=== PATIENT | female | born 1960 | race Caucasian/White ===

== ENCOUNTER 2017-03-16 04:55 | Inpatient (IN) | payer OTHER, SELFPAY ==
[2017-03-16] MEDS ORDERED: Lorazepam 2 MG/ML VIAL ONE (05:11)
[2017-03-16 05:47] LABS: PTT 24.5 SEC (22.9-36.1)
[2017-03-16 05:48] LABS: Prothrombin Time 15.8 SEC (12.0-14.7)
[2017-03-16 06:04] LABS: Band 25 % (5-11); Hematocrit 32.2 % (36.0-47.0); Mean Platelet Volume 6.8 fL (7.4-10.4); Neutrophil 65 % (42-75); Red Blood Cell (RBC) Count 3.88 mill/uL (4.20-5.40)
[2017-03-16 06:10] LABS: Troponin I 0.025 ng/mL (< 0.028)
[2017-03-16 06:12] LABS: ALT (SGPT) 15 U/L (8-55); AST (SGOT) 54 U/L (5-34); Alkaline Phosphatase 87 U/L (40-150); Anion Gap 17 mmol/L (10-20); BUN (Urea Nitrogen) 28 mg/dL (9.8-20.1); Bilirubin, Total 0.6 mg/dL (0.2-1.2); CK (CPK) 2224 U/L (29-168); Calc. Creatinine Clearance 0 mL/min (70-130); Calcium 8.5 mg/dL (7.8-10.44); Carbon Dioxide 17 mmol/L (22-29); Chloride 102 mmol/L (98-107); Estimated GFR-MDRD 32; Globulin 3.1 g/dL (2.4-3.5); Lipase Less than 4 U/L (8-78); Protein, Total 6.1 g/dL (6.0-8.3)
[2017-03-16] MEDS ORDERED: traMADol HCl 50 MG TAB ONE (06:56)
[2017-03-16] MEDS ORDERED: Aspirin 325 MG TAB ONE (06:56)
[2017-03-16 08:19] LABS: Magnesium 1.7 mg/dL (1.6-2.6)
[2017-03-16 08:23] LABS: Phosphorus 1.9 mg/dL (2.3-4.7)
[2017-03-16] MEDS ORDERED: K-Phos Neutral 250 MG TAB PO SCH ×2 (08:45→17:00)
[2017-03-16 08:51] LABS: Troponin I 0.037 ng/mL (< 0.028)
--- NOTE | 2017-03-16 09:00 | RAD ---
PORTABLE UPRIGHT FRONTAL CHEST RADIOGRAPH: Date: 03-16-17 Comparison: 04-27-16 History: Right upper extremity weakness, pain, altered mental status. FINDINGS: There is prominent of the cardiac silhouette and elevation of the right hemidiaphragm, stable. There is mild increased linear density in the medial left lung base with no pneumothorax, pleural fluid, fo carlitos consolidation or alveolar edema. IMPRESSION: No focal consolidation or alveolar edema. POS: [facility]
[2017-03-16] MEDS ORDERED: Meropenem 1 GM in Sodium Chloride 0.9% 100 ML IVPB SCH (09:15)
[2017-03-16] MEDS ORDERED: Vancomycin HCl 1 GM in Premix Bag 1 BAG IVPB SCH (09:15)
[2017-03-16 09:22] LABS: Oxyhemoglobin 92.7 % (94.0-97.0); Sodium 133 mmol/L (135-148)
[2017-03-16 09:23] LABS: Mode NC; Modified Allen's Test NOT DONE; Vent NO
[2017-03-16 09:32] LABS: Hemoglobin A1c 9.5 % (4.0-6.0)
[2017-03-16] MEDS ORDERED: Sodium Chloride 0.9% 1,000 ML IV SCH (09:33)
[2017-03-16] MEDS ORDERED: Ondansetron ODT 4 MG TAB SL PRN (09:33)
[2017-03-16] MEDS ORDERED: Ondansetron HCl/PF 4 MG/2 ML Vial IVP PRN ×2 (09:33→12:24)
--- NOTE | 2017-03-16 09:59 | CT ---
PRELIMINARY REPORT/[facility]/EMERGENCY AFTER HOURS PROCEDURE: EXAM: CT Head Without Intravenous Contrast EXAM DATE/TIME: Exam ordered 03/16/2017 5:43 AM CLINICAL HISTORY: 56 years old, female; Signs and symptoms; Altered mental status/memory loss and weakness, extremity; Right; Confusion or disorientation; Patient HX: Er 6; AMS; Pt with rue weakness since yesterday eveni ng. Pain in shoulder with sudden onset. No inciting trauma or prior history. Pt reports loss of sensa tion in right hand. Associated generalized headache, lle weakness, cp, rlq abdominal tenderness. HX o f dvt in lle. TECHNIQUE: Axial computed tomography images of the head/brain without intravenous contrast. COMPARISON: No relevant prior studies available. FINDINGS: Brain: Normal. No hemorrhage. No significant white matter disease. No edema. Ventricles: Normal. No ventriculomegaly. Bones/joints: Normal. No acute fracture. Soft tissues: Normal. Lymph nodes: There are partially visualized nodular densities in the LEFT posterior neck possibly representing inflamed lymph nodes. Sinuses: Unremarkable as visualized. No acute sinusitis. Mastoid air cells: Unremarkable as visualized. No mastoid effusion. IMPRESSION: 1. No acute intracranial hemorrhage. 2. There are partially visualized nodular densities in the LEFT posterior neck possibly representing inflamed lymph nodes. Thank you for allowing us to participate in the care of your patient. Dictated and Authenticated by: Baudilio Desir MD 03/16/2017 6:09 AM Central Time ([place] & [place]) FINAL REPORT HEAD CT WITHOUT CONTRAST: DATE: 03/16/17. COMPARISON: 04/27/16. HISTORY: Right upper extremity weakness, pain, altered mental status. FINDINGS: I agree with the preliminary [facility] report. Imaged paranasal sinuses and mastoid air cells appear well aerated. There is no displaced calvarial fracture. There is no intracranial hemorrhage, midline shift, or mass effect. There are areas of pe riventricular hypodensity posteriorly suggesting stable small-vessel disease. Partially visualized nodular soft tissue densities are seen in the left posterior neck, possibly on t he basis of prominent lymph nodes. IMPRESSION: Question mildly prominent lymph nodes in the posterior left occipital region. This could be better e valuated with followup neck CT. No intracranial hemorrhage. POS: [facility]
[2017-03-16] MEDS ORDERED: Vancomycin HCl 1.5 GM in Sodium Chloride 0.9% 250 ML 300 ML IVPB SCH (10:00)
--- NOTE | 2017-03-16 10:11 | CT ---
HEAD CT WITHOUT CONTRAST: DATE: 03/16/17. TIME: 9:20 a.m. COMPARISON: 03/16/17, 5:43 a.m. HISTORY: Altered mental status. TECHNIQUE: Serial axial CT imaging is obtained at 5 mm intervals from vertex through the skull base without cont rast. FINDINGS: The imaged paranasal sinuses and mastoid air cells are well aerated. There is no displaced calvarial fracture. There is no intracranial hemorrhage, midline shift, or mass effect. There has been interval development of significant subcutaneous gas posterior to the occipital bone a nd along the posterior aspect of the skull base. IMPRESSION: 1. No intracranial hemorrhage. 2. Interval development of significant subcutaneous gas inferiorly/posteriorly, for which further as sessment of the neck and chest is advised. These findings were discussed with Dr. Foster at 9:30 a.m. 03/16/17. CODE CR POS: [facility]
--- NOTE | 2017-03-16 10:58 | CT ---
NONCONTRAST CT EXAMINATION OF THE CHEST NONCONTRAST CT EXAMINATION OF THE ABDOMEN AND PELVIS: FINDINGS: There is some very extensive abnormal gas collection involving the right axilla with extensive intram uscular extension in the right shoulder girdle as well as extension into the right posterior paraspin us musculature as well as extension into the right neck. There was no gas present on a prior chest x- ray of 5:32 a.m. 03-16-17. Given the lack of some type of very extensive intervention in the right ax illa, this is of concern for a very extensive, very rapidly progressive or aggressive necrotizing fas ciitis process, presumably originating somewhere in the right axillary region. There is no evidence o f mediastinal mass or adenopathy. No pneumothorax or pneumomediastinum. No significant pleural effusi on. Status post cholecystectomy without ductal dilation. Liver, pancreas, spleen, adrenal glands are unre markable. No renal calculus or acute obstruction. Right anterior inguinal hernia containing fat an d small bowel without evidence for obstruction. Right sided iliac vascular stent. IMPRESSION: Very extensive soft tissue gas noted within the right axilla and extending into the intramuscular reg ion of the right shoulder girdle and right paraspinus musculature as well as the right trapezius musc le and air extending from the right axilla up into the right neck. This is gas was not present on the prior chest x-ray of 03-16-17 at 5:27 a.m. and given the lack of a pneumothorax or pneumomediastinum in the chest, this is most consistent with that of a very extensive necrotizing fasciitis, very aggr essive and very rapidly developing since the chest x-ray done earlier this morning. Findings were discussed with Dr. Andino at 10:00 a.m. He indicated the patient was moved into the ICU. Code CR. POS: [facility]
[2017-03-16] MEDS ORDERED: Micafungin 100 MG in Sodium Chloride 0.9% 100 ML IVPB SCH (11:00)
[2017-03-16] MEDS ORDERED: FLU VACC QS2017-18 36 mo. & older 0.5 ML SYRINGE IM ONE (11:15)
--- NOTE | 2017-03-16 11:15 | CT ---
NONCONTRAST SOFT TISSUE NECK CT: History: Subcutaneous emphysema noted on noncontrast head CT. Altered mental status. Change in patien t condition. Comparison: None. Technique: Noncontrast soft tissue neck CT is performed in the axial plane. Reformatted images are augustine bmitted for interpretation. FINDINGS: There is extensive subcutaneous emphysema tracking along the posterior and left and to a lesser exten t, right neck. There is a severe amount of subcutaneous emphysema along the right chest and axillary region. There is subcutaneous air tracking along the central spinal canal. Limited evaluation of the soft tissue neck structures due to lack of IV contrast. Grossly, no soft ti ssue neck abnormality. Heterogenous thyroid gland is noted. Cavernous carotid atherosclerosis is identified. Aerodigestive tract appears to be patent. Upper mediastinum and lung apices do not show any evidence of air in the mediastinum or in the pleura l space. Visualized vascular structures appear to be intact. IMPRESSION: Extensive subcutaneous emphysema of uncertain etiology. Refer to separate chest, abdomen, and pelvic CT for further detail. POS: [facility]
[2017-03-16 11:20] LABS: Oxyhemoglobin 90.5 % (94.0-97.0); Sodium 133 mmol/L (135-148)
[2017-03-16 11:22] LABS: Mechanical Tidal Volume 500 ml; Mode SIMV; Modified Allen's Test POSITIVE; Pressure Support 10 cmH2O; Vent YES
[2017-03-16 11:24] LABS: ALT (SGPT) 34 U/L (8-55); AST (SGOT) 148 U/L (5-34); Alkaline Phosphatase 88 U/L (40-150); Bilirubin, Direct 0.4 mg/dL (0.1-0.3); Bilirubin, Total 0.7 mg/dL (0.2-1.2); Protein, Total 5.7 g/dL (6.0-8.3)
[2017-03-16 11:35] VITALS: BMI 38.7
--- NOTE | 2017-03-16 11:54 | RAD ---
CHEST ONE VIEW: HISTORY: Intubated. COMPARISON: 03/16/2017 FINDINGS: The cardiac silhouette is magnified by projection. The pulmonary vasculature is engorged and accentu ated by shallow inspiration. The mediastinum is midline. The tip of an endotracheal catheter overli es the thoracic inlet. A nasogastric tube descends to the stomach. Extensive right chest wall gas is as detailed on recent CT exam. 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 IMPRESSION: 1. Endotracheal catheter is in good radiographic position. 2. Extensive right chest wall gas. POS: [facility]
[2017-03-16] MEDS ORDERED: Albumin 5% 250 ML ONE (12:14)
[2017-03-16] MEDS ORDERED: Acetaminophen 325 MG/10.15 ML UDCUP PO PRN (12:15)
[2017-03-16] MEDS ORDERED: Insulin Regular 300 UNITS/3 ML VIAL SC PRN ×2 (12:15→16:23)
[2017-03-16] MEDS ORDERED: Sedation Protocol FS ONE (12:15)
[2017-03-16] MEDS ORDERED: Sodium Bicarbonate 50 MEQ in Sodium Chloride 0.45% 1,000 ML IV SCH (12:15)
[2017-03-16] MEDS ORDERED: Bisacodyl 10 MG SUPP PR PRN (12:24)
[2017-03-16] MEDS ORDERED: Acetaminophen 650 MG Suppository PR PRN (12:24)
[2017-03-16] MEDS ORDERED: Ondansetron ODT 4 MG TAB PO PRN (12:24)
[2017-03-16] MEDS ORDERED: hydrALAZINE 20 MG/ML VIAL SLOW IVP PRN (12:25)
[2017-03-16] MEDS ORDERED: Labetalol HCl 100 MG/20 ML VIAL SLOW IVP PRN (12:25)
[2017-03-16] MEDS: Meropenem 1 GM in Sodium Chloride 0.9% 100 ML IVPB SCH ×2 (12:28→17:26)
--- NOTE | 2017-03-16 12:31 | HP ---
DATE OF ADMISSION: 03/16/2017 PRIMARY CARE PHYSICIAN: Obinna Davis M.D. CHIEF COMPLAINT: Altered mentation along with right-sided weakness. HISTORY OF PRESENT ILLNESS: The patient is a 56-year-old female with obesity, diabetes mellitus type 2, and TIA in the past, currently on aspirin 81 mg daily , presented to the emergency room around 5 a.m. with above complaints. History was obtained from the family at bedside. Since yesterday, patient has been complaining of right flank pain along with low grade fever. She refused coming to the emergency room last night. She also had some right arm numbness per family report. At the time of my interview , patient is intubated and sedated on mechanical ventilation. She currently lives at home with her . No recent falls at home reported. No recent immobilization, travel, chest pain, palpitations, headache, double vision or any other focal neurologic deficit reported by the family. In the emergency room, initial vital signs showed temperature 98.4, respirations 22, pulse of 88, blood pressure of 165/96 with O2 saturation 97% on room air. Her labs were consistent with rhabdomyolysis. The plan was to admit her to rule out stroke as well as hydrate her for rhabdomyolysis. After arrival to the floor, malachi lo was called. She was unresponsive. She was able to maintain her air bases initially. A stat CT scan of the brain was done that was negative for acute findings except for subcutaneous air. For this reason, she underwent CT scan of the neck, chest, abdomen, and pelvis without contrast due to CKD that showed extensive subcutaneous air in the right axilla and right chest wall. PAST MEDICAL HISTORY: 1. Diabetes mellitus type 2. 2. Obesity with a BMI 38.8. 3. Hypertension. 4. CKD stage 3. 5. History of TIA currently on aspirin. 6. Normal left ventricular ejection fraction in 04/2016. 7. Negative Cardiolite stress test in 2014. 8. Normal carotid artery Doppler in 05/11/2016. PAST SURGICAL HISTORY: 1. Partial hysterectomy. 2. x2. 3. Abdominal hernia repair. 4. Cholecystectomy. 5. Cardiac catheterization earlier this year by Dr. Adames that was unremarkable per past history and physical from 04/2016. 6. Procedures for varicose veins. ALLERGIES: No known drug allergies. CURRENT MEDICATIONS: According to the list in the [employer], aspirin 162 mg daily, Lasix 20 mg daily, Lantus 35 units subcu daily, Procardia-XL 60 mg daily. FAMILY HISTORY: Multiple family members with diabetes. SOCIAL HISTORY: Currently lives at home with her . 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 REVIEW OF SYSTEMS: Cannot be obtained from the patient due to current cognitive status. PHYSICAL EXAMINATION: VITAL SIGNS: As discussed above. Patient is currently intubated and sedated on mechanical ventilation. HEENT: Head is atraumatic and normocephalic. Sclerae are anicteric. Pupils are 2-3 mm with sluggish response to light. NECK: Supple. Extensive subcutaneous air with bruising noted. LUNGS: Showed diminished air entry at bilateral bases. Again, there was extensive subcutaneous air with bruising in the right upper extremity. No rhonchi or wheezing. HEART: S1 and S2 present. Regular rate and rhythm. ABDOMEN: Soft, bowel sounds present, no rebound, guarding, no costovertebral angle tenderness appreciated. EXTREMITIES: Trace edema in bilateral lower extremities. NEUROLOGIC/PSYCHIATRIC: Examination could not be done due to current cognitive status. SKIN: As discussed above. LYMPH NODES: No palpable lymph nodes in the neck. PERIPHERAL VASCULAR: Radial pulses palpable bilaterally. MUSCULOSKELETAL: No joint swelling or tenderness. LABORATORY DATA AND IMAGIN. CBC showed WBC 10 with hemoglobin 10.3, hematocrit 32.2, platelet count of 261 with 25% bandemia. 2. ABGs after intubation showed pH 7.25 with pO2 of 73.4, pCO2 of 52.8. 3. Hemoglobin A1c 9.3, CRP 14.2. Lactic acid maximum was 3.8. Troponin in indeterminate range at 0.037. 4. LFTs in normal range except for AST of 148. BNP 400. TSH was normal. 5. Chest x-ray by my review initially was negative for acute findings. 6. EKG by my review showed sinus rhythm with nonspecific ST-T wave changes. 7. CT scan of the brain by my review initially was negative for acute findings. IMPRESSION: 1. Acute hypoxic and hypercapnic respiratory failure. 2. Extensive subcutaneous air of unclear etiology. Suspected necrotizing infection. 3. Sepsis with acute organ dysfunction. 4. Lactic acidosis/metabolic acidosis. 5. Rhabdomyolysis. 6. Acute kidney injury on chronic kidney disease stage 3. 7. Elevated inflammatory markers. 8. Elevated cardiac enzymes, probably secondary to demand ischemia. 9. Diabetes mellitus type 2, uncontrolled. Hemoglobin A1c 9.5. 10. Obesity with a body mass index of 38.8. 11. Hypertension. 12. Right-sided numbness of questionable etiology. PLAN: The patient will be monitored in the Intensive Care Unit. Multiple consultants including Infectious Disease, General Surgery and Critical Care have been consulted. Empiric antibiotics have been initiated. I discussed with Dr Villalobos who recommended Vancomycin, Meropenem and Micafungin. I also discussed with General surgery Dr Turcios. We will continue IV fluids. Ejection fraction was normal at last admission. We will hold diuretics. Insulin sliding scale will be started. We will continue low dose aspirin for now. Neurology will be consulted once patient's mentation improves. I didn't get direct report from the ER physician. I called ER after this patient got assigned to me (around 7:30 ) and talked to Dr Banuelos who was not involved in the patient care. The patient was seen by the overnight ER physician who has already left. I ordered blood culture due to elevated lactic acid with 25% bandemia while she was in ER. I assessed the patient after she arrived to room 215 (at the same time of malachi lo) Plan of care was discussed with the family in detail. They stated understanding. CODE STATUS: FULL CODE. LEVEL OF RISK - HIGH MTDD
--- NOTE | 2017-03-16 12:48 | PRG ---
DATE OF SERVICE: 03/16/2017 I had a lengthy discussion with the radiologist, Dr. Salgado who reviewed her extensive CT of the neck, chest, abdomen. The patient has an intramuscular air dissecting extensively. He thinks this is an acute necrotizing fasciitis and no evidence of pneumothorax. It would be very unlikely from fa ll she would get air in a muscle. Even though she has got ecchymosis and a hematoma in the scapular area. She now is hypotensive. Blo od pressure is low, we are starting on Levophed. I started a sepsis protocol, thiamine, vitamin C, h ydrocortisone, Clindamycin and Levophed. Will discuss with Surgery. Prognosis appears to be grave if she has got necrotizing fasciitis. I doubt she will go to surgery. Ongoing critical care one-half hour.
[2017-03-16] MEDS ORDERED: Acetaminophen 650 MG/20.3 ML UDCUP PO PRN (12:54)
--- NOTE | 2017-03-16 13:20 | ULT ---
BILATERAL UPPER EXTREMITY VENOUS DOPPLER ULTRASOUND: 03/16/2017 HISTORY: Edema. History of DVT. Congestive heart failure. COMPARISON: None. TECHNIQUE: Multiplanar seo-scale sonographic imaging of the venous structures of the bilateral upper extremitie s obtained with color-flow and spectral analysis. FINDINGS: Bilateral common femoral veins, greater saphenous veins, profunda femoral veins, femoral veins, popli teal veins, and posterior tibial veins are parent. There is normal blood flow, augmentation, and compression within the deep venous system bilaterally w ith no evidence for DVT on either side. IMPRESSION: No evidence for deep venous thrombosis of either lower extremity. POS: [facility]
[2017-03-16] MEDS ORDERED: Fentanyl 100 MCG/2 ML VIAL ONE (13:37)
[2017-03-16] MEDS ORDERED: Sodium Bicarb 50 MEQ/50 ML Abboject 8.4% SYRINGE ONE ×2 (13:42→13:43)
[2017-03-16] MEDS: Clindamycin/D5W 600 MG in Premix Bag 1 BAG IVPB SCH ×2 (13:46→23:35)
--- NOTE | 2017-03-16 13:57 | CON ---
DATE OF CONSULTATION: 03/16/2017 REASON FOR CONSULTATION: Possible necrotizing fasciitis. HISTORY OF PRESENT ILLNESS: A 56-year-old patient who has a history of type 2 diabetes mellitus, hyp ertension with previous admission in 05/2014 with chest pain, having been newly diagnosed with diabet es mellitus which had been untreated until 2014 and then another admission in April this year when she was admitted with headaches. At that time, the patient had an MRI of brain an ultrasound of the carotid arteries as well as CT angiogram of the major arteries of the neck and all of the studies jf wed only mild atherosclerotic plaque in the proximal internal carotid arteries. The patient at this time was brought with a complaint of right flank tenderness and low grade fever associated with right arm numbness. She also had pain in the shoulder which was of quite sudden onset with no evidence of previous trauma. Initial vital signs with blood pressure 165/96, pulse 88, respirations 22, tempera ture 98.4 with O2 sat 97% on room air. According to the ER physician's notes, the patient appeared n ontoxic on arrival, was alert and oriented. The neck exam is described as normal with normal range o f motion. The patient had no meningeal signs. Respiratory examination and cardiovascular examinatio n were normal as well. The back examination was normal. The strength in the right upper extremity w as decreased compared with the left. The initial labs demonstrated sodium 132, creatinine 1.64. CK was 2224. Troponin 0.025, albumin 3.0, globulin 3.1. White cell count was 10,000 with 25% bands, he moglobin 10.3, INR 1.2. PH 7.35, pCO2 37, pO2 72.6. She had a chest x-ray today at 5:00 a.m. which showed prominent cardiac silhouette, no other changes. She had a repeat chest x-ray 5 hours later wi th this time, extensive chest wall gas. She had a chest and abdomen and pelvis CT scan with very ext ensive soft tissue gas noted in the right axilla extending into the intramuscular region, right shoul ester girdle and right paraspinal musculature and right trapezius muscle up to the right neck. Current ly, Ms. Craft is intubated. She is sedated and is unresponsive. No relatives present to give us more information. PAST MEDICAL HISTORY: Type 2 diabetes, obesity, hypertension, renal insufficiency stage 3, prior TIA , negative Cardiolite test. PAST SURGICAL HISTORY: Partial hysterectomy, , hernia repair, cholecystectomy, cardiac cath eterization. ALLERGIES: None. MEDICATIONS: She is currently on broad spectrum coverage including clindamycin, meropenem, vancomyci n, Tylenol, DuoNeb, ascorbic acid. FAMILY HISTORY: Diabetes mellitus type 2. 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 PHYSICAL EXAMINATION: VITAL SIGNS: T-max 98.7, blood pressure 73/46. She is on Levophed. SKIN: Shows multiple areas of palpable and nonpalpable purpura in the neck and shoulders. There is an extensive area of erythema and purplish discoloration in the right shoulder area extending towards the back with blistering associated with it. There is evidence of crepitus suggestive of subcutaneo us emphysema around the right and left shoulders and right and left side of the neck. Aparicio catheter in place. She has numerous peripheral IV accesses. HEENT: Pupils are miotic, sclerae are white. Orotracheal intubation. LUNGS: Symmetric air entry. HEART: S1, S2, regular rate without murmurs. ABDOMEN: Soft, without distention, no obvious organomegaly or ascites. No bladder distention. EXTREMITIES: No edema. Pulses are 1+ in dorsalis pedis. No movements are elicited at this time and she is sedated. LABORATORY: The latest labs with a hemoglobin A1c 9.5, lactic acid 3.8. CRP 14, albumin 2.9. Micro biology with pending samples. Venogram is pending. ASSESSMENT: 1. Diabetes type 2. 2. Sepsis. 3. Septic shock. 4. Rapidly progressing necrotizing infection in the right side of her torso evolving particularly th e shoulder area and posterior chest area, now extending towards the left side in the neck. DISCUSSION: The most likely scenario is a fulminant streptococcal necrotizing fasciitis with myonecr osis, clostridial myonecrosis was another possibility, Staphylococcal and polymicrobial processes not ruled out including gram negative myonecrosis and necrotizing fasciitis. The patient is on proper r egimen at this time. Prognosis is obviously very poor in view of the rapidity of onset and the exten siveness of the involvement.
--- NOTE | 2017-03-16 14:20 | CON ---
DATE OF CONSULTATION: 03/16/2017 HISTORY OF PRESENT ILLNESS: She is presently in the ICU, intubated in the vent. Rather unusual history. Her is at the bedside. Patient is from [place], who sees Dr. Davis. There, she presented last night with left leg weakness. Initial CT of the head was done, which was unremarkable. They f elt she had a CVA. Apparently in the ER, trying to get on the commode, she fell and hit the side of the railing. She was in the stroke unit this morning, when she became less responsive, had respirato ry distress. CT of the head, chest, and abdomen was done. CT of the head second time shows no new l esion, but CT of the chest shows extensive subcutaneous emphysema involving right neck and chest all the way down to the pelvis. Her says that the patient has no difficulty breathing prior to this. She is obese, but she is apparently able get around without much difficulty breathing. 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 No prior history of TB, pneumonia, or bronchial asthma, no history of sleep apnea. Apparently in the ER, she was appropriate. PAST MEDICAL HISTORY: Pertinent for apparently DVT in the left leg, history of diabetes, previous ap parently CVA, hypertension, and renal failure. PAST SURGICAL HISTORY: Including gallbladder, , hernia, and hysterectomy. MEDICATIONS: In the ER, she was given apparently 2 mg of Ativan and tramadol. Her list of medicines from home includes Procardia 60, insulin 35, Lasix 20, and aspirin 162. REVIEW OF SYSTEMS: Unobtainable. She is sedated. PHYSICAL EXAMINATION: VITAL SIGNS: Post intubation in the ER, blood pressure is 102/48, pulse 82, sats . CHEST: Reveals decreased breath sounds. No wheezing. There is subcutaneous emphysema involving the right infraclavicular area extending all the way down to the lower abdomen. Additionally, there is ecchymosis, large hematoma in the right scapular area. CARDIAC: Normal S1 and S2. No gallops. ABDOMEN: Soft. No masses. LABORATORY AND IMAGING DATA: Chest x-ray showed no acute infiltrates. White count 10,000, hemoglobi n and hematocrit 10 and 32, platelet count is normal. PO2 is 72, pCO2 of , pH 7.23 on 2 liters prior to intubation. Creatinine is 1.65. Initial CK-MB was elevated. Creatine kinase was 224. BNP is 399. IMPRESSION: 1. Metabolic encephalopathy, etiology unclear. 2. Right subcutaneous emphysema and hematoma in the back from a fall. Unclear whether this is new o r happened at home. 3. Renal failure. 4. Diabetes. 5. Hypertension. 6. Morbid obesity. PLAN: Adjust antibiotics for renal failure. Deescalate once the cultures are back. Continue vent s upport. I would order an echo and ultrasound of the leg. Hydration. We will follow. Forty-five minutes critical care time.
[2017-03-16] MEDS ORDERED: Midazolam HCl 5 mg/5 ml Vial ONE (14:28)
[2017-03-16] MEDS ORDERED: Insulin Regular 300 UNITS/3 ML VIAL ONE (14:36)
[2017-03-16] MEDS ORDERED: OCTAGAM 10% 10 GM, OCTAGAM 10% 20 GM in Admixture Fee 1 EACH IVPB SCH (15:00)
[2017-03-16] MEDS ORDERED: Dextrose 50% Abboject 50 ML SYRINGE SLOW IVP PRN (16:23)
[2017-03-16] MEDS ORDERED: Dextrose 5% in Water 1,000 ML IV PRN (16:23)
[2017-03-16 16:32] LABS: Oxyhemoglobin 95.2 % (94.0-97.0); Sodium 134 mmol/L (135-148)
[2017-03-16 16:34] LABS: Mechanical Tidal Volume 500 ml; Mode PSIMV; Modified Allen's Test NOT DONE; Pressure Support 10 cmH2O; Vent YES
[2017-03-16 16:38] LABS: Hematocrit 26.3 % (36.0-47.0); Mean Platelet Volume 6.9 fL (7.4-10.4); Red Blood Cell (RBC) Count 3.15 mill/uL (4.20-5.40); White Blood Cell (WBC) Count 3.9 thou/uL (4.8-10.8)
[2017-03-16 16:44] LABS: PTT 34.9 SEC (22.9-36.1); Prothrombin Time 20.2 SEC (12.0-14.7)
[2017-03-16] MEDS: Lactated Ringer's 1,000 ML IV SCH ×4 (16:48→23:36)
[2017-03-16] MEDS ORDERED: Vasopressin 40 UNIT, Admixture Fee 1 EACH in Sodium Chloride 0.9% 100 ML IV SCH (17:00)
[2017-03-16 17:05] LABS: Anion Gap 13 mmol/L (10-20); BUN (Urea Nitrogen) 33 mg/dL (9.8-20.1); Calc. Creatinine Clearance 46 mL/min (70-130); Calcium 7.5 mg/dL (7.8-10.44); Carbon Dioxide 20 mmol/L (22-29); Chloride 106 mmol/L (98-107); Estimated GFR-MDRD 23
[2017-03-16 17:09] LABS: Anisocytosis SLIGHT = 6-15 cells (100X) (0-5/hpf); Band 20 % (5-11); Metamyelocyte 1 % (0-0); Neutrophil 59 % (42-75); Reactive Lymphocytes 4 % (0-10)
[2017-03-16] MEDS: Hydrocortisone Sod Succ/PF 100 mg/2 ml Vial IVP SCH ×2 (17:25→23:35)
--- NOTE | 2017-03-16 19:15 | CON ---
DATE OF CONSULTATION: 03/16/2017 TYPE OF CONSULTATION: Surgical Consultation. CHIEF COMPLAINT: Extensive subcutaneous gas involving the right chest wall/axilla/bilateral neck/edgar k. HISTORY OF PRESENT ILLNESS: The patient is a morbidly obese 56-year-old white female. She is coinci dentally known to myself from laparoscopic cholecystectomy in 2007. She is diabetic, hypertensive wi th mild chronic kidney disease. She presented to the emergency room today complaining of some altere d mentation along with right-sided weakness. Apparently in some fashion, she was seen in the emergen cy room, had a CT scan of her brain performed and was admitted to the stroke unit. I am told that charisma ge collapsed in the stroke unit although I am not certain what this means. Another CT scan of her hea d was performed revealing some air within the soft tissues of the neck that had not been present at 5 :00 this morning. Subsequent further imaging was obtained including CT of the chest, abdomen and pel vis and neck. There was fairly extensive subcutaneous air. The patient was intubated and brought to the intensive care unit. There were no focal skin lesions as a potential etiology for an extensive subcutaneous infection. She was initially stabilized with IV fluid hydration, antibiotic administrat ion, mechanical ventilation, I was consulted to evaluate her for possible necrotizing fasciitis. Over the course of 1-2 hours of resuscitation and stabilization, she went from having essentially no skin lesions or abnormalities to having mottling of the skin in multiple areas as well as bullae and blister formation. When I presented, she is intubated, requiring very little sedation. She is unresponsive and there ar e no family members present. PAST MEDICAL HISTORY: 1. Diabetes mellitus. 2. Morbid obesity. 3. Hypertension. 4. Chronic kidney disease. 5. History of TIA. PAST SURGICAL HISTORY: 1. Partial hysterectomy. 2. x2. 3. Abdominal hernia repair. 4. Laparoscopic cholecystectomy. 5. Cardiac catheterization earlier this year. ALLERGIES: No known drug allergies. MEDICATIONS: Include Lasix, Lantus, Procardia. PERSONAL AND SOCIAL HISTORY: She is . Her is present in the hospital currently (post operative). I spoke with him on the phone preoperatively. One of her daughters is present currently . REVIEW OF SYSTEMS: Otherwise, unremarkable. FAMILY HISTORY: Noncontributory. PHYSICAL EXAMINATION: VITAL SIGNS: She is afebrile. She is currently on Levophed. Her blood pressure is stable with a sy stolic 120, pulse is stable at 80-90. GENERAL: She is a morbidly obese white female resting in bed on the ventilator. She is unresponsive . Her examination was initially significant for mottling and discoloration and blisters/bullae forma tion in multiple areas including her neck bilaterally, her upper chest, her right lateral chest wall leading to the axilla, her right arm, and her upper back and right back. When popped the blisters, a relatively nonfoul smelling fluid is produced. There is no medhat necrosis is noted cutaneously. CARDIAC: Regular rate and rhythm. ABDOMEN: Benign, but morbidly obese. LUNGS: Clear to auscultation. LABORATORY DATA: CBC from this morning reveals a white blood count of 10 with a hemoglobin of 10.3, hematocrit of 32, platelet count of 261. Chemistry panel revealed mildly low sodium of 132, carbon d ioxide is low at 17, BUN and creatinine is elevated at 28 and 1.6. Her BUN is slightly lower than it s normal values recently. Of note, her beta natriuretic peptide is elevated at 399. Her lactic acid was elevated at 3.8 and her hemoglobin A1c is elevated at 9.5. ASSESSMENT: The patient with a rapidly progressive necrotizing soft tissue infection consistent with necrotizing fasciitis. She has been optimized with intravenous fluids, pressors, and antibiotics. She is being managed by Infectious Disease as well as Pulmonary Medicine/Critical Care. I recommend immediate operation for extensive incision debridement. I was able to contact her and deborah elidia to him the extensive surgery and the gravity of her situation. I explained that under the best o f circumstances this disease process of the high mortality rate. Depending upon her operative course , we will recommend consideration of hyperbaric oxygen as well.
--- NOTE | 2017-03-16 20:18 | OP ---
DATE OF PROCEDURE: 03/16/2017 PROCEDURE: Endotracheal intubation. INDICATIONS: Hypoxia. DESCRIPTION OF PROCEDURE: The patient who had recently been admitted to the Medicine Service on the floor, she was noted to become altered and was being sent to CT for CT evaluation and during the proc edure, the patient had developed significant hypoxia with oxygen saturations in the low 80s. I was r equested to assist intubating the patient. The patient would be preoxygenated for 2-3 minutes via ba g valve mask and was able to get her oxygen saturation up to 100%. The patient was obtunded but stil l was given 20 of etomidate and 100 of rocuronium for sedation and paralysis. The patient was intuba matt using a #4 Erica blade. A 7.5 ET tube was successfully passed through the vocal cords on the first pass. The capnography showed good color exchange. The patient was ventilated and her oxygen saturations remained above 90%. This tube was secured and OG tube was placed, both were confirmed wi th a chest x-ray once the patient reached the critical care unit.
[2017-03-16] MEDS: Famotidine/PF 20 mg/2ml Vial SLOW IVP SCH (20:47)
[2017-03-16] MEDS: Heparin 5,000 UNITS/ML VIAL SC SCH (20:48)
[2017-03-17] MEDS: Meropenem 1 GM in Sodium Chloride 0.9% 100 ML IVPB SCH ×2 (01:39→09:04)
[2017-03-17] MEDS: Norepinephrine 8 MG/0.9% NS 250 ML IVPB SCH ×2 (01:41→06:01)
[2017-03-17] MEDS: Phenylephrine 10 MG/NS 250 ML 250 ML IVPB SCH ×9 (03:13→11:00)
[2017-03-17 04:05] LABS: Sodium 132 mmol/L (135-148)
[2017-03-17] MEDS ORDERED: Sodium Bicarb 50 MEQ/50 ML Abboject 8.4% SYRINGE ONE (04:14)
[2017-03-17] MEDS ORDERED: Sodium Bicarb 50 MEQ/50 ML Abboject 8.4% SYRINGE IVP SCH ×2 (04:15→05:15)
[2017-03-17 04:38] LABS: PTT 38.5 SEC (22.9-36.1); Prothrombin Time 24.3 SEC (12.0-14.7)
[2017-03-17 04:51] LABS: Anion Gap 24 mmol/L (10-20); BUN (Urea Nitrogen) 36 mg/dL (9.8-20.1); Calc. Creatinine Clearance 37 mL/min (70-130); Chloride 107 mmol/L (98-107); Estimated GFR-MDRD 18
[2017-03-17 04:58] LABS: Band 20 % (5-11); Hematocrit 42.7 % (36.0-47.0); Mean Platelet Volume 8.6 fL (7.4-10.4); Metamyelocyte 3 % (0-0); Myelocyte 5 % (0-0); Neutrophil 35 % (42-75); Red Blood Cell (RBC) Count 5.01 mill/uL (4.20-5.40); White Blood Cell (WBC) Count 7.4 thou/uL (4.8-10.8)
[2017-03-17 05:04] LABS: Carbon Dioxide 8 mmol/L (22-29)
[2017-03-17 05:19] LABS: CK (CPK) 16078 U/L (29-168)
[2017-03-17] MEDS: Hydrocortisone Sod Succ/PF 100 mg/2 ml Vial IVP SCH ×2 (05:22→11:07)
[2017-03-17] MEDS: Lactated Ringer's 1,000 ML IV SCH ×3 (05:23→12:21)
[2017-03-17] MEDS: Clindamycin/D5W 600 MG in Premix Bag 1 BAG IVPB SCH ×2 (05:23→12:21)
[2017-03-17 05:41] LABS: Mechanical Tidal Volume 500 ml; Mode SIMV; Pressure Support 10 cmH2O; Vent YES
[2017-03-17 06:49] VITALS: BP 101/70
[2017-03-17 07:47] LABS: Oxyhemoglobin 97.4 % (94.0-97.0); Sodium 136 mmol/L (135-148)
[2017-03-17 07:48] LABS: Mechanical Tidal Volume 500 ml; Mode SIMV/PSV; Modified Allen's Test NOT DONE; Pressure Support 10 cmH2O; Vent YES
[2017-03-17] MEDS: Heparin 5,000 UNITS/ML VIAL SC SCH (08:14)
[2017-03-17] MEDS: Famotidine/PF 20 mg/2ml Vial SLOW IVP SCH (08:14)
[2017-03-17] MEDS ORDERED: OCTAGAM 10% (10 GM/100 ML VIAL) IVPB SCH (09:00)
[2017-03-17] MEDS ORDERED: Aspirin 81 mg Enteric Coated Tablet PER TUBE SCH (09:00)
[2017-03-17 10:05] VITALS: TEMP 102.3
--- NOTE | 2017-03-17 10:40 | PRG ---
DATE OF SERVICE: 03/17/2017 SUBJECTIVE: Ms. Craft remains intubated in the Intensive Care Unit. She is postoperative day #1 from a wide excision and debridement of necrotizing fasciitis. Her disease had progressed remarkably fas t. Subsequent to the procedure, she initially appeared to stabilize, but thereafter deteriorated rosie rly quickly. When I last saw her yesterday, she was requiring Levophed at 4 mcg per minute. She is currently maxed at a rate of 30 mcg per minute. I have also added vasopressin and Brad-Synephrine and in spite of all 3 strong pressors she is still hypotensive with the systolic in the 70s. She is req uiring no sedation at all and is entirely unresponsive. LABORATORY STUDIES: Revealed that she has renal failure with a potassium level of 6.7. Her creatini ne has gone up to 2.8. She is acidotic with lactate level that has risen from 3.8 yesterday to 10.5 today. Her creatinine kinase is elevated at 16,000, up from 2200. Her urine output is very low as w ell. PHYSICAL EXAMINATION: On examination, her wounds appeared to be deteriorating. There are further ar eas of mottling of the skin extending down her right arm and across her chest. I did not roll over h er to look at her back. ASSESSMENT AND PLAN: In summary, she is clearly deteriorating further and fairly rapidly. With her maxed on pressors and still hypotensive, I do not feel this is a survivable situation. Her renal fun ction will continue to deteriorate as well her acidosis. She is not stable enough to consider any fu rther operation, and I am still not certain exactly what I would do or what the source of this proble m was. Accordingly, I have expressed this to her . This patient is already a do not resuscit ate patient, but I recommend consideration of withdrawal of care. We will contact family members, an d after appropriate members have had a chance to see her and visit with her, then the pressors will b e discontinued, after which I expect that she will fairly quickly. I have discussed this both with her hospitalist as well as her planting material unloader. Her is additionally interested in an aut opsy, which I think is appropriate since we are still not certain what the source of this raging infe ction is. There is nothing further surgical to do to assist with this situation currently.
[2017-03-17] MEDS ORDERED: Albumin 25% 25 GM/100 ML BOT IVPB SCH (12:00)
[2017-03-17] MEDS ORDERED: Vancomycin HCl 1.5 GM in Sodium Chloride 0.9% 250 ML 300 ML IVPB SCH (12:00)
--- NOTE | 2017-03-17 14:19 | DS ---
DATE OF EXPIRATION: 03/17/2017 TIME OF : 11:23 a.m. BRIEF HOSPITAL COURSE: The patient was a 56-year-old female with diabetes mellitus type 2, hypertens ion, CKD stage 3, and TIA in the past, on aspirin, presented to the hospital with altered mentation w ith right upper extremity weakness. Please refer to the history and physical for further details. The patient was admitted initially with a diagnosis of rule out CVA with rhabdomyolysis as well as ac [place] kidney injury. When she arrived to the floor, RAUL HANNON was called. She underwent stat CT scan of the brain that was negative for intracranial findings. However, it showed subcutaneous air. She then underwent a CT scan of the neck, chest, and abdomen and pelvis noncontrast that was consistent with very extensive soft tissue gas noted within the right axilla and extending into the intramuscula r region of the right shoulder girdle and the right paraspinous musculature as well as the right trap ezius muscle with extension to the right neck. She was started on broad spectrum antibiotic per Infe ctious Disease recommendation for necrotizing fascitis. She was seen by General Surgery, Dr. Turcios and underwent surgical exploration on 03/16/2017. She was monitored in the intensive care unit on v entilator as well as multiple pressors. She was then made DO NOT RESUSCITATE. She this morning around 11:23 a.m. Family was at the bedside. Autopsy has been ordered per regulation. FINAL DIAGNOSES: 1. Extensive necrotizing fascitis. 2. Rhabdomyolysis. 3. Severe sepsis with acute organ dysfunction/septic shock. 4. Diabetes mellitus type 2. 5. Hypertension. 6. Acute kidney injury. 7. Hyperkalemia. 8. History of transient ischemic attack in the past. 9. Obesity with a body mass index of 39.1. 10. Coagulopathy secondary to sepsis. 11. Acute hypoxic and hypercapnic respiratory failure. 12. Lactic acidosis. 13. Abnormal liver function tests secondary to sepsis.
--- NOTE | 2017-03-17 14:33 | PRG ---
DATE OF SERVICE: 03/17/2017 Ms. Craft was evaluated this morning. Her neck and chest was bandaged extensively. Pressures in the 60s-70s on very high-dose pressors. She is cool peripherally. She has had total body edema from vol ume resuscitation. Her breath sounds were distant. Heart tones were distant. Her abdomen was soft. Extremities with asymmetry. Labs were all reviewed. IMPRESSION: Necrotizing fasciitis. Her , when I met with him this morning, was contemplating withdrawal of care. He did make her a do not resuscitate patient. He did quickly tell me he wanted to understand why this happened and wanted her to have an autopsy once she had succumbed to this. I did my best to answer all of his questions. The precipitating event is unclear. One thing I could get historically out of him was that she had had some right lower quadrant pain within the last week or two that she felt was appendicitis, but that got better after a bowel movement (she had been const ipated for 4 to 5 days according to her ). 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
--- NOTE | 2017-03-17 17:10 | OP ---
DATE OF PROCEDURE: 03/16/2017 PREOPERATIVE DIAGNOSIS: Necrotizing fasciitis with hemodynamic instability. POSTOPERATIVE DIAGNOSIS: Necrotizing fasciitis with hemodynamic instability. OPERATION PERFORMED: Placement of right femoral ultrasound guided 7-Iraqi triple-lumen central line , extensive incision and drainage with debridement, both blunt and sharp of diffuse areas of necrotiz ing fasciitis. This involved incisions across the neck, the chest, the axilla, the upper and lateral back. SURGEON: Josh Turcios M.D. ANESTHESIA: General endotracheal. INDICATIONS: The patient is a 56-year-old morbidly obese, diabetic female who presented to the emerg ency room on the day of the surgery. She had collapsed and imaging studies revealed diffuse subcutan eous and submuscular air. This appeared to be consistent with necrotizing fascitis. The origin of t his problem could not be discerned. She had required intubation and developed hemodynamic instabilit y for which she required pressor administration. She is taken to the operating room at this time for incision and drainage of multiple involved areas with mottling, discoloration, and bullae formation. DESCRIPTION OF OPERATION: Informed consent was obtained. The patient was taken to the operating susana m where general endotracheal anesthesia was maintained. Attention was turned first to her groin. Th e right groin was cleansed of foul smelling material consistent with a yeast infection. This was scr ubbed with peroxide and Betadine. I then prepped with ChloraPrep and draped in sterile fashion. Ult rasound was utilized to identify the femoral vein. Large gauge needle was passed into the femoral ve in uneventfully. Guidewire was passed through the needle, needle was removed. Skin was incised, tra cked and dilated, a 7-[place]raqi triple-lumen catheter was passed over the wire. Each of the 3 lumens as pirated blood freely and was flushed with heparinized saline. Catheter was secured at skin exit site with 3-0 silk suture. Sterile occlusive dressing was applied along with a Biopatch. The patient was initially placed supine and I prepped her right upper extremity, her axilla, neck, ch est, and lateral chest extending down to the bed. I later rolled her upon her left side to give me a ccess to her upper back and right later back. In each area that was addressed, created a skin incisi on of varying lengths. Even though this was an area, that was clearly mottled and had blisters on th em, there was essentially no immediate subcutaneous . As I dissected deeply, I was able to id entify gas within the deep soft tissues. The patient is morbidly obese and I dissected far to the fa t before reaching the muscular layer at which point the gas was discovered. There was no foul smell in any area. There was no purulence in any area. I digitally dissected along any diseased tissue pl anes, trying to open up these areas for further debridement. There were no medhat areas of necrosis t hat required a sharp excision. I also could not identify a source of these areas infection. Incisions that were created to accomplish this included a 25 cm transverse incision across her upper back. A 15 cm vertical incision on the right side of her back, a 23 cm right lateral chest incision that involved the axilla, a 9 cm right flank incision, a 24 cm incision that included her bilateral n ale, a 35 mm incision going up her right posterior arm, a 9 cm incision on the anterior chest. At the time of this operation, this appeared to be most severely affected areas. I was hopeful that in some fashion decompressing might lead to resolution of the rapidly advancing infectious process. Each wound was irrigated with saline. They were then packed with Betadine moistened gauze rolls and dry gauze was placed externally. There were no complications. There was very, very little blood los s. Due to her severe sepsis, there was almost no cutaneous bleeding with any incision and any bleedi ng that was encountered was controlled with electrocautery. The patient was taken back to the [facility] Unit still intubated and in critical condition.
[2017-03-19] MEDS ORDERED: FLU VACC QS2017-18 36 mo. & older 0.5 ML SYRINGE IM ONE (12:00)
== END 2017-03-17 13:45 | disposition expired | DRG 853 ==
LOC: ERS 04:55 → 2SE 08:29 → CCU 10:09
PROVIDERS: ADMIT Internal Medicine Infectious Disease; ATTEND Internal Medicine Infectious Disease
PROC: 0JB70ZZ Excision of Back Subcutaneous Tissue and Fascia, Open Approach (ICD-10-PCS; principal; 2017-03-16)
PROC: 5A1945Z Respiratory Ventilation, 24-96 Consecutive Hours (ICD-10-PCS; 2017-03-16)
PROC: 0JB60ZZ Excision of Chest Subcutaneous Tissue and Fascia, Open Approach (ICD-10-PCS; 2017-03-16)
PROC: 0JB50ZZ Excision of Left Neck Subcutaneous Tissue and Fascia, Open Approach (ICD-10-PCS; 2017-03-16)
PROC: 0JB40ZZ Excision of Right Neck Subcutaneous Tissue and Fascia, Open Approach (ICD-10-PCS; 2017-03-16)
PROC: 0JB80ZZ Excision of Abdomen Subcutaneous Tissue and Fascia, Open Approach (ICD-10-PCS; 2017-03-16)
PROC: 0JBD0ZZ Excision of Right Upper Arm Subcutaneous Tissue and Fascia, Open Approach (ICD-10-PCS; 2017-03-16)
PROC: 30233N1 Transfusion of Nonautologous Red Blood Cells into Peripheral Vein, Percutaneous Approach (ICD-10-PCS; 2017-03-16)
PROC: 0BH17EZ Insertion of Endotracheal Airway into Trachea, Via Natural or Artificial Opening (ICD-10-PCS; 2017-03-16)
PROC: 06HY33Z Insertion of Infusion Device into Lower Vein, Percutaneous Approach (ICD-10-PCS; 2017-03-16)
DX: A41.9 Sepsis, unspecified organism (principal); J96.01 Acute respiratory failure with hypoxia; R65.21 Severe sepsis with septic shock; M72.6 Necrotizing fasciitis; G93.41 Metabolic encephalopathy; J96.02 Acute respiratory failure with hypercapnia; N17.9 Acute kidney failure, unspecified; E87.2 Acidosis; I24.8 Other forms of acute ischemic heart disease; E66.01 Morbid (severe) obesity due to excess calories; N18.3 Chronic kidney disease, stage 3 (moderate); M62.82 Rhabdomyolysis; Z66 Do not resuscitate; Z68.38 Body mass index [BMI] 38.0-38.9, adult; Z79.82 Long term (current) use of aspirin; Z79.4 Long term (current) use of insulin; Z86.73 Personal history of transient ischemic attack (TIA), and cerebral infarction without residual deficits; E87.5 Hyperkalemia; E11.22 Type 2 diabetes mellitus with diabetic chronic kidney disease; I12.9 Hypertensive chronic kidney disease with stage 1 through stage 4 chronic kidney disease, or unspecified chronic kidney disease
CPT/HCPCS: 36415; 36416; 36430; 70450; 70490; 71010; 71250; 74177; 80048; 80053; 82140; 82533; 82550; 82553; 82607; 82746; 82805; 83036; 83605; 83690; 83735; 83880; 84100; 84443; 84484; 85025; 85610; 85652; 85730; 86140; 86850; 86900; 86901; 87040; 87070; 87076; 87205; 93005; 93970; 94002; 94003; J1568; J1644; J1720; J1815; J2060; J2185; J2248; J2250; J3010; J3370; J3411; J7050; J7620; P9016; P9045; P9047; S0028